=== PATIENT | male | born 1970 | race Caucasian/White ===

== ENCOUNTER → 2018-11-08 | Outpatient (CLI) | payer BC, MEDICAID ==
[~2018-11-08] MED LIST: IOHEXOL 100 ML ONE; METOPROLOL 100 MG TAB ONE; SOD CHLORIDE 0.9% 100 ML ONE
== END | disposition home or self-care (01) ==
LOC: C/S 10:19
PROVIDERS: ATTEND Internal Medicine Interventional Cardiology
DX: R93.1 Abnormal findings on diagnostic imaging of heart and coronary circulation (principal); R07.9 Chest pain, unspecified; Z95.1 Presence of aortocoronary bypass graft
CPT/HCPCS: 75571; 75574; Q9967; Z7610